=== PATIENT | male | born 1945 | race Caucasian/White ===

== ENCOUNTER 2021-08-29 10:02 | Emergency (ER) | payer MEDICARE ==
[~2021-08-29] VITALS: Ht 172.7 cm; Wt 127.0 kg
== END 2021-08-29 12:57 | disposition home or self-care (01) ==
LOC: ER 10:20
DX: T18.9XXA Foreign body of alimentary tract, part unspecified, initial encounter (principal); I10 Essential (primary) hypertension; E78.5 Hyperlipidemia, unspecified; I48.91 Unspecified atrial fibrillation; Z85.9 Personal history of malignant neoplasm, unspecified
CPT/HCPCS: 74018; 99283